=== PATIENT | male | born 1980 | race African-American/Black ===

== ENCOUNTER 2021-10-03 15:35 | Emergency (ER) | payer BC, SELFPAY ==
[2021-10-03] MEDS ORDERED: Ketorolac Tromethamine 30 MG/ML VIAL ONE (18:32)
[2021-10-03] MEDS ORDERED: Acetaminophen 500 MG TAB ONE (18:51)
[2021-10-03] MEDS ORDERED: cefTRIAXone\\ROCEPHIN 1 GM VIAL ONE (18:51)
[2021-10-03] MEDS ORDERED: Dexamethasone 10 MG/ML VIAL ONE (20:04)
[2021-10-03 20:28] LABS: MONO NEGATIVE CONTROL ZONE White (Negative) (White); MONO POSITIVE CONTROL Pink Line (Positive) (PINK/RED); Mononucleosis NEGATIVE (NEGATIVE)
[2021-10-04 11:17] LABS: Chlamydia by PCR Not Detected (NotDetected); GC by PCR Not Detected (NotDetected)
== END 2021-10-03 21:00 | disposition home or self-care (01) ==
LOC: CSHERS 15:35
DX: J03.90 Acute tonsillitis, unspecified (principal); K50.90 Crohn's disease, unspecified, without complications
CPT/HCPCS: 36415; 86308; 87081; 87430; 87491; 87591; 96372; 99284; J0696; J1100; J1885